=== PATIENT | male | born 1990 | race Caucasian/White ===

== ENCOUNTER 2016-06-02 13:28 | Emergency (ER) | payer MEDICAID ==
[2016-06-02] MEDS ORDERED: ORPHENADRINE 60 MG/2 ML AMP ONE (14:18)
[2016-06-02] MEDS ORDERED: KETOROLAC 60 MG/2 ML VIAL IM ONE (14:19)
== END 2016-06-02 15:20 | disposition home or self-care (01) ==
LOC: FASTR 13:28
CPT/HCPCS: 72100; 96372